=== PATIENT | male | born 1935 | race Caucasian/White ===

== ENCOUNTER 2018-06-12 06:26 | Inpatient (IN) | payer MEDICARE ==
[2018-06-12] MEDS: NS 500 ML IV (07:00)
[2018-06-12 07:03] LABS: BASO % 0.4 % (0.0-1.0); EOS # 0.1 10^3/uL (0.0-0.50); EOS % 1.8 % (0.0-3.0); HEMATOCRIT 38.3 % (42.0-52.0); HEMOGLOBIN 13.4 g/dl (13.5-17.5); IMMATURE GRANULOCYTE % 0.4 % (0-3.0); LYMPH # 0.4 10^3/uL (1.5-4.5); LYMPH % 9.3 % (24.0-44.0); MEAN CORPUSCULAR HEMOGLOBIN 32.8 pg (27.0-33.0); MEAN CORPUSCULAR VOLUME 93.9 fl (80.0-96.0); MONO # 0.5 10^3/uL (0.0-0.8); MONO % 10.9 % (0.0-5.0); NEUTROPHILS # 3.5 10^3/uL (1.8-7.7); NEUTROPHILS % 77.2 % (36.0-66.0); PLATELET COUNT, AUTOMATED 153 10^3/uL (150-450); RED BLOOD COUNT 4.08 10^6/uL (4.30-6.10); RED CELL DISTRIBUTION WIDTH 14.2 % (11.5-14.5); WHITE BLOOD COUNT 4.5 10^3/uL (4.0-10.0)
[2018-06-12] MEDS: MORPHINE 4 MG/ML 1ML VIAL/SYRINGE (J2270) IV ×4 (07:03→20:52)
[2018-06-12 07:14] LABS: INR 1.02; PROTHROMBIN TIME 13.5 SECONDS (12.1-14.4)
[2018-06-12 07:15] LABS: PARTIAL THROMBOPLASTIN TIME 25.8 SECONDS (25.4-37.6)
[2018-06-12 07:23] LABS: ANION GAP 12 MEQ/L (8-16); BLOOD UREA NITROGEN 40 MG/DL (7-18); CALCIUM LEVEL 8.9 MG/DL (8.8-10.2); CARBON DIOXIDE LEVEL 30 MEQ/L (21-32); CHLORIDE LEVEL 87 MEQ/L (98-107); GLOMERULAR FILTRATION RATE 38.7 (>35); GLUCOSE, FASTING 106 MG/DL (70-100); POTASSIUM SERUM 3.8 MEQ/L (3.5-5.1); SODIUM LEVEL 129 MEQ/L (136-145)
[2018-06-12] MEDS: NS 1,000 ML IV ×2 (07:35→20:52)
[2018-06-12 08:11] LABS: CPK CREATINE PHOSPHOKINASE 60 U/L (39-308); MB/CK RELATIVE INDEX 3.83 (< OR =4); TROPONIN I 0.21 NG/ML (< 0.10)
[2018-06-12] MEDS: ONDANSETRON 4MG/2ML VIAL (J2405) IV (08:32)
[2018-06-12] MEDS ORDERED: ONDANSETRON 4MG/2ML VIAL (J2405) IV (10:15)
[2018-06-12] MEDS: SENOKOT S TAB PO (20:52)
[2018-06-13] MEDS: MORPHINE 4 MG/ML 1ML VIAL/SYRINGE (J2270) IV ×2 (01:20→09:42)
[2018-06-13 07:10] LABS: ALBUMIN 2.2 GM/DL (3.2-5.2); ALBUMIN/GLOBULIN RATIO 0.45 (1.00-1.93); ALKALINE PHOSPHATASE 96 U/L (45-117); ALT/SGPT 19 U/L (12-78); ANION GAP 10 MEQ/L (8-16); AST/SGOT 32 U/L (7-37); BILIRUBIN,TOTAL 1.1 MG/DL (0.2-1.0); BLOOD UREA NITROGEN 37 MG/DL (7-18); CALCIUM LEVEL 8.7 MG/DL (8.8-10.2); CARBON DIOXIDE LEVEL 30 MEQ/L (21-32); CHLORIDE LEVEL 95 MEQ/L (98-107); CREATININE FOR GFR 1.62 MG/DL (0.70-1.30); GLOMERULAR FILTRATION RATE 43.8 (>35); GLUCOSE, FASTING 85 MG/DL (70-100); SODIUM LEVEL 135 MEQ/L (136-145); TOTAL PROTEIN 7.1 GM/DL (6.4-8.2)
[2018-06-13] MEDS: SENOKOT S TAB PO ×2 (08:06→21:22)
[2018-06-13] MEDS: NS 1,000 ML IV (09:42)
[2018-06-13] MEDS: FUROSEMIDE 80 MG TAB PO (12:44)
[2018-06-14] MEDS: NS 1,000 ML IV ×3 (01:33→17:43)
[2018-06-14] MEDS: MORPHINE 4 MG/ML 1ML VIAL/SYRINGE (J2270) IV ×2 (03:45→20:44)
[2018-06-14] MEDS: SENOKOT S TAB PO ×2 (09:00→20:44)
[2018-06-14] MEDS: FUROSEMIDE 80 MG TAB PO (09:10)
[2018-06-14] MEDS ORDERED: fentaNYL 100 MCG/2 ML INJECTION (J3010) As Ordered (10:49)
[2018-06-14] MEDS ORDERED: LIDOCAINE 2% INJ 100 MG/5 ML SDV (FOR ANES.) As Ordered (10:49)
[2018-06-14] MEDS ORDERED: PROPOFOL 200 MG/20 ML VIAL As Ordered (10:49)
[2018-06-14] MEDS ORDERED: KETAMINE HCL 200 MG/20 ML VIAL As Ordered (12:10)
[2018-06-14] MEDS ORDERED: ePHEDrine SULFATE 25 MG/5 ML(5MG/ML) SYRINGE As Ordered (12:20)
[2018-06-14] MEDS ORDERED: PHENYLephrine HCL 500 MCG/5 ML (100MCG/ML) SYRINGE (J2370) As Ordered ×2 (12:20→12:38)
[2018-06-14] MEDS: ceFAZolin 1GM INJ (J0690 PER 500MG) As Ordered (12:24)
[2018-06-14] MEDS ORDERED: MORPHINE 10 MG/ML 1ML VIAL (J2270) IV (14:00)
[2018-06-14] MEDS ORDERED: fentaNYL 100 MCG/2 ML INJECTION (J3010) IV (14:00)
[2018-06-14] MEDS ORDERED: LR 1,000 ML IV (14:00)
[2018-06-14] MEDS ORDERED: ONDANSETRON 4MG/2ML VIAL (J2405) IV (14:00)
[2018-06-15] MEDS: BISACODYL 5 MG TAB PO (01:19)
[2018-06-15 07:47] LABS: HEMATOCRIT 35.8 % (42.0-52.0); HEMOGLOBIN 11.9 g/dl (13.5-17.5); MEAN CORPUSCULAR HEMOGLOBIN 32.9 pg (27.0-33.0); MEAN CORPUSCULAR HGB CONC 33.2 g/dl (32.0-36.5); MEAN CORPUSCULAR VOLUME 98.9 fl (80.0-96.0); PLATELET COUNT, AUTOMATED 113 10^3/uL (150-450); RED BLOOD COUNT 3.62 10^6/uL (4.30-6.10); RED CELL DISTRIBUTION WIDTH 14.6 % (11.5-14.5); WHITE BLOOD COUNT 6.2 10^3/uL (4.0-10.0)
[2018-06-15 08:00] LABS: ANION GAP 10 MEQ/L (8-16); BLOOD UREA NITROGEN 34 MG/DL (7-18); CALCIUM LEVEL 8.1 MG/DL (8.8-10.2); CARBON DIOXIDE LEVEL 29 MEQ/L (21-32); CHLORIDE LEVEL 98 MEQ/L (98-107); CREATININE FOR GFR 1.49 MG/DL (0.70-1.30); GLOMERULAR FILTRATION RATE 48.2 (>35); GLUCOSE, FASTING 98 MG/DL (70-100); POTASSIUM SERUM 3.3 MEQ/L (3.5-5.1); SODIUM LEVEL 137 MEQ/L (136-145)
[2018-06-15] MEDS: RIVAROXABAN 10 MG TAB (XARELTO) PO (10:19)
[2018-06-15] MEDS: SENOKOT S TAB PO ×2 (10:19→20:25)
[2018-06-15] MEDS: FUROSEMIDE 80 MG TAB PO (10:19)
[2018-06-15] MEDS: POTASSIUM CHLORIDE 10 MEQ SR TABLET PO (12:43)
[2018-06-16] MEDS: ACETAMINOPHEN 500 MG TAB PO (02:58)
[2018-06-16] MEDS: BISACODYL 5 MG TAB PO (09:40)
[2018-06-16] MEDS: RIVAROXABAN 10 MG TAB (XARELTO) PO (09:40)
[2018-06-16] MEDS: FUROSEMIDE 80 MG TAB PO (09:40)
[2018-06-16] MEDS: SENOKOT S TAB PO ×2 (09:40→21:16)
[2018-06-16 13:29] LABS: ANION GAP 9 MEQ/L (8-16); BLOOD UREA NITROGEN 36 MG/DL (7-18); CALCIUM LEVEL 8.1 MG/DL (8.8-10.2); CARBON DIOXIDE LEVEL 29 MEQ/L (21-32); CHLORIDE LEVEL 97 MEQ/L (98-107); CREATININE FOR GFR 1.58 MG/DL (0.70-1.30); GLUCOSE, FASTING 155 MG/DL (70-100); POTASSIUM SERUM 3.7 MEQ/L (3.5-5.1); SODIUM LEVEL 135 MEQ/L (136-145)
[2018-06-17] MEDS: ACETAMINOPHEN 500 MG TAB PO ×3 (03:44→23:11)
[2018-06-17] MEDS: SENOKOT S TAB PO ×2 (10:11→20:13)
[2018-06-17] MEDS: RIVAROXABAN 10 MG TAB (XARELTO) PO (10:11)
[2018-06-17] MEDS: FUROSEMIDE 80 MG TAB PO (10:12)
[2018-06-17 10:40] LABS: HEMATOCRIT 34.8 % (42.0-52.0); HEMOGLOBIN 11.9 g/dl (13.5-17.5); MEAN CORPUSCULAR HEMOGLOBIN 33.2 pg (27.0-33.0); MEAN CORPUSCULAR HGB CONC 34.2 g/dl (32.0-36.5); MEAN CORPUSCULAR VOLUME 97.2 fl (80.0-96.0); PLATELET COUNT, AUTOMATED 121 10^3/uL (150-450); RED BLOOD COUNT 3.58 10^6/uL (4.30-6.10); RED CELL DISTRIBUTION WIDTH 14.6 % (11.5-14.5); WHITE BLOOD COUNT 8.5 10^3/uL (4.0-10.0)
[2018-06-17 10:55] LABS: ANION GAP 12 MEQ/L (8-16); BLOOD UREA NITROGEN 34 MG/DL (7-18); CALCIUM LEVEL 7.9 MG/DL (8.8-10.2); CARBON DIOXIDE LEVEL 27 MEQ/L (21-32); CHLORIDE LEVEL 97 MEQ/L (98-107); CREATININE FOR GFR 1.37 MG/DL (0.70-1.30); GLOMERULAR FILTRATION RATE 53.1 (>35); GLUCOSE, FASTING 131 MG/DL (70-100); POTASSIUM SERUM 3.6 MEQ/L (3.5-5.1); SODIUM LEVEL 136 MEQ/L (136-145)
[2018-06-18 08:12] LABS: HEMOGLOBIN 11.4 g/dl (13.5-17.5); MEAN CORPUSCULAR HGB CONC 34.5 g/dl (32.0-36.5); MEAN CORPUSCULAR VOLUME 95.7 fl (80.0-96.0); PLATELET COUNT, AUTOMATED 131 10^3/uL (150-450); RED BLOOD COUNT 3.45 10^6/uL (4.30-6.10); RED CELL DISTRIBUTION WIDTH 14.6 % (11.5-14.5); WHITE BLOOD COUNT 7.4 10^3/uL (4.0-10.0)
[2018-06-18 08:33] LABS: ANION GAP 9 MEQ/L (8-16); BLOOD UREA NITROGEN 31 MG/DL (7-18); CALCIUM LEVEL 7.8 MG/DL (8.8-10.2); CARBON DIOXIDE LEVEL 30 MEQ/L (21-32); CHLORIDE LEVEL 98 MEQ/L (98-107); CREATININE FOR GFR 1.21 MG/DL (0.70-1.30); GLOMERULAR FILTRATION RATE > 60.0 (>35); GLUCOSE, FASTING 110 MG/DL (70-100); POTASSIUM SERUM 3.7 MEQ/L (3.5-5.1); SODIUM LEVEL 137 MEQ/L (136-145)
[2018-06-18] MEDS: FUROSEMIDE 80 MG TAB PO (09:35)
[2018-06-18] MEDS: RIVAROXABAN 10 MG TAB (XARELTO) PO (09:35)
[2018-06-18] MEDS: SENOKOT S TAB PO ×2 (09:35→21:35)
[2018-06-18] MEDS: ACETAMINOPHEN 500 MG TAB PO (17:18)
[2018-06-19] MEDS: ACETAMINOPHEN 500 MG TAB PO ×2 (00:43→20:07)
[2018-06-19 07:38] LABS: HEMOGLOBIN 11.9 g/dl (13.5-17.5); MEAN CORPUSCULAR HEMOGLOBIN 33.1 pg (27.0-33.0); MEAN CORPUSCULAR VOLUME 97.2 fl (80.0-96.0); PLATELET COUNT, AUTOMATED 150 10^3/uL (150-450); RED CELL DISTRIBUTION WIDTH 14.7 % (11.5-14.5); WHITE BLOOD COUNT 6.4 10^3/uL (4.0-10.0)
[2018-06-19 08:01] LABS: ANION GAP 9 MEQ/L (8-16); BLOOD UREA NITROGEN 28 MG/DL (7-18); CALCIUM LEVEL 8.1 MG/DL (8.8-10.2); CARBON DIOXIDE LEVEL 29 MEQ/L (21-32); CHLORIDE LEVEL 97 MEQ/L (98-107); CREATININE FOR GFR 1.16 MG/DL (0.70-1.30); GLOMERULAR FILTRATION RATE > 60.0 (>35); GLUCOSE, FASTING 84 MG/DL (70-100); POTASSIUM SERUM 3.4 MEQ/L (3.5-5.1); SODIUM LEVEL 135 MEQ/L (136-145)
[2018-06-19] MEDS: FUROSEMIDE 80 MG TAB PO (09:57)
[2018-06-19] MEDS: SENOKOT S TAB PO ×2 (09:57→20:06)
[2018-06-19] MEDS: RIVAROXABAN 10 MG TAB (XARELTO) PO (09:57)
[2018-06-19] MEDS: traMADol 50 MG TAB PO ×2 (10:06→20:07)
[2018-06-20] MEDS: SENOKOT S TAB PO ×2 (07:33→21:37)
[2018-06-20] MEDS: RIVAROXABAN 10 MG TAB (XARELTO) PO (08:00)
[2018-06-20] MEDS: FUROSEMIDE 80 MG TAB PO (08:00)
[2018-06-20] MEDS ORDERED: FLEET ENEMA PR (10:15)
[2018-06-20] MEDS ORDERED: MOM 30ML SUSPENSION UDC PO (10:15)
[2018-06-20] MEDS: POTASSIUM CHLORIDE 10 MEQ SR TABLET PO (10:40)
[2018-06-20 10:43] LABS: HEMATOCRIT 36.4 % (42.0-52.0); HEMOGLOBIN 12.1 g/dl (13.5-17.5); MEAN CORPUSCULAR HEMOGLOBIN 32.9 pg (27.0-33.0); MEAN CORPUSCULAR HGB CONC 33.2 g/dl (32.0-36.5); MEAN CORPUSCULAR VOLUME 98.9 fl (80.0-96.0); PLATELET COUNT, AUTOMATED 188 10^3/uL (150-450); RED BLOOD COUNT 3.68 10^6/uL (4.30-6.10); RED CELL DISTRIBUTION WIDTH 14.9 % (11.5-14.5); WHITE BLOOD COUNT 7.3 10^3/uL (4.0-10.0)
[2018-06-20 11:01] LABS: ANION GAP 7 MEQ/L (8-16); BLOOD UREA NITROGEN 31 MG/DL (7-18); CALCIUM LEVEL 7.9 MG/DL (8.8-10.2); CARBON DIOXIDE LEVEL 29 MEQ/L (21-32); CHLORIDE LEVEL 97 MEQ/L (98-107); CREATININE FOR GFR 1.33 MG/DL (0.70-1.30); GLOMERULAR FILTRATION RATE 54.9 (>35); GLUCOSE, FASTING 126 MG/DL (70-100); SODIUM LEVEL 133 MEQ/L (136-145)
[2018-06-20] MEDS: TAMSULOSIN 0.4 MG CAP PO (12:35)
[2018-06-20] MEDS: traMADol 50 MG TAB PO (21:40)
[2018-06-20] MEDS: ACETAMINOPHEN 500 MG TAB PO (21:41)
[2018-06-21] MEDS: SENOKOT S TAB PO ×2 (09:00→20:01)
[2018-06-21] MEDS: TAMSULOSIN 0.4 MG CAP PO (09:24)
[2018-06-21] MEDS: POTASSIUM CHLORIDE 10 MEQ SR TABLET PO (09:24)
[2018-06-21] MEDS: RIVAROXABAN 10 MG TAB (XARELTO) PO (09:24)
[2018-06-21] MEDS: FUROSEMIDE 80 MG TAB PO (09:24)
[2018-06-21] MEDS: ACETAMINOPHEN 500 MG TAB PO (15:55)
[2018-06-21] MEDS: traMADol 50 MG TAB PO (20:03)
[2018-06-22] MEDS: SENOKOT S TAB PO (10:32)
[2018-06-22] MEDS: POTASSIUM CHLORIDE 10 MEQ SR TABLET PO (10:32)
[2018-06-22] MEDS: FUROSEMIDE 80 MG TAB PO (10:33)
[2018-06-22] MEDS: RIVAROXABAN 10 MG TAB (XARELTO) PO (10:33)
[2018-06-22] MEDS: TAMSULOSIN 0.4 MG CAP PO (10:33)
== END 2018-06-22 13:34 | disposition other institution (70) | DRG 481 ==
LOC: M ED 06:26 → M ED INP 11:58 → M MS5PR 13:57
PROC: 0QS604Z Reposition Right Upper Femur with Internal Fixation Device, Open Approach (ICD-10-PCS; principal; 2018-06-14 11:00)
DX: S72.144A Nondisplaced intertrochanteric fracture of right femur, initial encounter for closed fracture (principal); E87.1 Hypo-osmolality and hyponatremia; R79.89 Other specified abnormal findings of blood chemistry; I50.9 Heart failure, unspecified; I45.10 Unspecified right bundle-branch block; N18.3 Chronic kidney disease, stage 3 (moderate); D38.1 Neoplasm of uncertain behavior of trachea, bronchus and lung; R33.9 Retention of urine, unspecified; I48.91 Unspecified atrial fibrillation; W01.0XXA Fall on same level from slipping, tripping and stumbling without subsequent striking against object, initial encounter; Y92.003 Bedroom of unspecified non-institutional (private) residence as the place of occurrence of the external cause; Y93.01 Activity, walking, marching and hiking; Z86.73 Personal history of transient ischemic attack (TIA), and cerebral infarction without residual deficits; Z79.01 Long term (current) use of anticoagulants; Z79.899 Other long term (current) drug therapy; Z87.891 Personal history of nicotine dependence; Z88.5 Allergy status to narcotic agent; Z88.6 Allergy status to analgesic agent; Z96.0 Presence of urogenital implants

== ENCOUNTER → 2018-07-25 | Outpatient (REF) | payer MEDICARE ==
[2018-07-25 17:22] LABS: BASO % 0.2 % (0.0-1.0); EOS # 0.1 10^3/uL (0.0-0.50); EOS % 1.1 % (0.0-3.0); HEMATOCRIT 28.2 % (42.0-52.0); HEMOGLOBIN 9.2 g/dl (13.5-17.5); IMMATURE GRANULOCYTE % 0.4 % (0-3.0); LYMPH # 0.3 10^3/uL (1.5-4.5); LYMPH % 5.8 % (24.0-44.0); MEAN CORPUSCULAR HEMOGLOBIN 32.5 pg (27.0-33.0); MEAN CORPUSCULAR HGB CONC 32.6 g/dl (32.0-36.5); MEAN CORPUSCULAR VOLUME 99.6 fl (80.0-96.0); MONO # 0.3 10^3/uL (0.0-0.8); NEUTROPHILS # 4.6 10^3/uL (1.8-7.7); NEUTROPHILS % 86.5 % (36.0-66.0); PLATELET COUNT, AUTOMATED 212 10^3/uL (150-450); RED BLOOD COUNT 2.83 10^6/uL (4.30-6.10); RED CELL DISTRIBUTION WIDTH 15.4 % (11.5-14.5); WHITE BLOOD COUNT 5.3 10^3/uL (4.0-10.0)
[2018-07-25 17:44] LABS: INR 1.56; PROTHROMBIN TIME 18.9 SECONDS (12.1-14.4)
[2018-07-25 17:45] LABS: PARTIAL THROMBOPLASTIN TIME 33.3 SECONDS (25.4-37.6)
[2018-07-25 17:59] LABS: ALBUMIN 2.2 GM/DL (3.2-5.2); ALBUMIN/GLOBULIN RATIO 0.39 (1.00-1.93); ALKALINE PHOSPHATASE 230 U/L (45-117); ALT/SGPT 21 U/L (12-78); ANION GAP 10 MEQ/L (8-16); AST/SGOT 34 U/L (7-37); BILIRUBIN,TOTAL 0.6 MG/DL (0.2-1.0); BLOOD UREA NITROGEN 70 MG/DL (7-18); CALCIUM LEVEL 8.1 MG/DL (8.8-10.2); CARBON DIOXIDE LEVEL 29 MEQ/L (21-32); CHLORIDE LEVEL 97 MEQ/L (98-107); CREATININE FOR GFR 1.64 MG/DL (0.70-1.30); GLOMERULAR FILTRATION RATE 43.1 (>35); GLUCOSE, FASTING 85 MG/DL (70-100); MAGNESIUM LEVEL 2.6 MG/DL (1.8-2.4); PHOSPHORUS LEVEL 3.7 MG/DL (2.5-4.9); SODIUM LEVEL 136 MEQ/L (136-145); TOTAL PROTEIN 7.8 GM/DL (6.4-8.2)
== END ==
LOC: M LAB REF 16:55
DX: J44.9 Chronic obstructive pulmonary disease, unspecified (principal); Z79.01 Long term (current) use of anticoagulants
CPT/HCPCS: 83735

== ENCOUNTER 2018-07-29 14:04 | Inpatient (IN) | payer MEDICARE ==
[2018-07-29] MEDS: FUROSEMIDE 40 MG/4 ML VIAL (J1940) IV (15:45)
[2018-07-29 16:14] LABS: BASO % 0.2 % (0.0-1.0); EOS # 0.1 10^3/uL (0.0-0.50); EOS % 1.2 % (0.0-3.0); HEMATOCRIT 28.2 % (42.0-52.0); HEMOGLOBIN 8.9 g/dl (13.5-17.5); IMMATURE GRANULOCYTE % 0.4 % (0-3.0); LYMPH # 0.3 10^3/uL (1.5-4.5); LYMPH % 5.5 % (24.0-44.0); MEAN CORPUSCULAR HEMOGLOBIN 32.2 pg (27.0-33.0); MEAN CORPUSCULAR HGB CONC 31.6 g/dl (32.0-36.5); MEAN CORPUSCULAR VOLUME 102.2 fl (80.0-96.0); MONO # 0.5 10^3/uL (0.0-0.8); MONO % 9.3 % (0.0-5.0); NEUTROPHILS # 4.1 10^3/uL (1.8-7.7); NEUTROPHILS % 83.4 % (36.0-66.0); PLATELET COUNT, AUTOMATED 211 10^3/uL (150-450); RED BLOOD COUNT 2.76 10^6/uL (4.30-6.10)
[2018-07-29 16:23] LABS: INR 1.24; PROTHROMBIN TIME 15.8 SECONDS (12.1-14.4)
[2018-07-29 16:24] LABS: PARTIAL THROMBOPLASTIN TIME 29.4 SECONDS (25.4-37.6)
[2018-07-29 16:33] LABS: POSITIVE DIFF POS FLAG
[2018-07-29 16:41] LABS: ALBUMIN 2.1 GM/DL (3.2-5.2); ALBUMIN/GLOBULIN RATIO 0.39 (1.00-1.93); ALKALINE PHOSPHATASE 193 U/L (45-117); ALT/SGPT 15 U/L (12-78); ANION GAP 7 MEQ/L (8-16); AST/SGOT 24 U/L (7-37); BILIRUBIN,DIRECT 0.2 MG/DL (0.0-0.2); BILIRUBIN,TOTAL 0.5 MG/DL (0.2-1.0); BLOOD UREA NITROGEN 62 MG/DL (7-18); CALCIUM LEVEL 8.3 MG/DL (8.8-10.2); CARBON DIOXIDE LEVEL 30 MEQ/L (21-32); CHLORIDE LEVEL 100 MEQ/L (98-107); CPK CREATINE PHOSPHOKINASE 41 U/L (39-308); CREATININE FOR GFR 1.49 MG/DL (0.70-1.30); FREE T4 0.89 NG/DL (0.76-1.46); GLOMERULAR FILTRATION RATE 48.2 (>35); GLUCOSE, FASTING 105 MG/DL (70-100); MB/CK RELATIVE INDEX 7.32 (< OR =4); NT-PRO BNP 17624 PG/ML (<450); POTASSIUM SERUM 3.9 MEQ/L (3.5-5.1); SODIUM LEVEL 137 MEQ/L (136-145); TOTAL PROTEIN 7.5 GM/DL (6.4-8.2); TROPONIN I 0.23 NG/ML (< 0.10)
[2018-07-29] MEDS ORDERED: BISACODYL 10 MG SUPP PR (17:45)
[2018-07-29] MEDS: RIVAROXABAN 20 MG TAB (XARELTO) PO (18:08)
[2018-07-29] MEDS: FUROSEMIDE 100 MG/10 ML VIAL (J1940) IV (21:12)
[2018-07-29 21:57] LABS: TROPONIN I 0.22 NG/ML (< 0.10)
[2018-07-30] MEDS: LEVOTHYROXINE 12.5MCG PER 1/2 TAB (0.0125MG) PO (05:32)
[2018-07-30 06:28] LABS: ANION GAP 9 MEQ/L (8-16); BLOOD UREA NITROGEN 57 MG/DL (7-18); CALCIUM LEVEL 8.1 MG/DL (8.8-10.2); CARBON DIOXIDE LEVEL 29 MEQ/L (21-32); CHLORIDE LEVEL 100 MEQ/L (98-107); CREATININE FOR GFR 1.46 MG/DL (0.70-1.30); GLOMERULAR FILTRATION RATE 49.3 (>35); GLUCOSE, FASTING 90 MG/DL (70-100); POTASSIUM SERUM 3.3 MEQ/L (3.5-5.1); SODIUM LEVEL 138 MEQ/L (136-145)
[2018-07-30] MEDS: POTASSIUM CHLORIDE 10 MEQ SR TABLET PO (08:43)
[2018-07-30] MEDS: FUROSEMIDE 100 MG/10 ML VIAL (J1940) IV ×3 (08:43→20:21)
[2018-07-30] MEDS: TAMSULOSIN 0.4 MG CAP PO (08:43)
[2018-07-30 10:01] LABS: HEMOGLOBIN 8.4 g/dl (13.5-17.5); MEAN CORPUSCULAR HEMOGLOBIN 31.9 pg (27.0-33.0); MEAN CORPUSCULAR HGB CONC 32.3 g/dl (32.0-36.5); MEAN CORPUSCULAR VOLUME 98.9 fl (80.0-96.0); PLATELET COUNT, AUTOMATED 139 10^3/uL (150-450); RED BLOOD COUNT 2.63 10^6/uL (4.30-6.10); RED CELL DISTRIBUTION WIDTH 16.1 % (11.5-14.5); WHITE BLOOD COUNT 4.7 10^3/uL (4.0-10.0)
[2018-07-30 10:34] LABS: ANION GAP 9 MEQ/L (8-16); BLOOD UREA NITROGEN 57 MG/DL (7-18); CALCIUM LEVEL 8.2 MG/DL (8.8-10.2); CARBON DIOXIDE LEVEL 28 MEQ/L (21-32); CHLORIDE LEVEL 100 MEQ/L (98-107); CREATININE FOR GFR 1.48 MG/DL (0.70-1.30); GLOMERULAR FILTRATION RATE 48.6 (>35); GLUCOSE, FASTING 137 MG/DL (70-100); POTASSIUM SERUM 3.3 MEQ/L (3.5-5.1); SODIUM LEVEL 137 MEQ/L (136-145)
[2018-07-30 10:36] LABS: TROPONIN I 0.22 NG/ML (< 0.10)
[2018-07-30 13:55] LABS: HEMATOCRIT 26.7 % (42.0-52.0); HEMOGLOBIN 8.5 g/dl (13.5-17.5)
[2018-07-30] MEDS: RIVAROXABAN 20 MG TAB (XARELTO) PO (18:45)
[2018-07-30] MEDS: TOLNAFTATE 1% CREAM 15 GM TOP (20:22)
[2018-07-31] MEDS: LEVOTHYROXINE 12.5MCG PER 1/2 TAB (0.0125MG) PO (05:36)
[2018-07-31 06:23] LABS: HEMATOCRIT 25.9 % (42.0-52.0); HEMOGLOBIN 8.2 g/dl (13.5-17.5); MEAN CORPUSCULAR HEMOGLOBIN 32.3 pg (27.0-33.0); MEAN CORPUSCULAR HGB CONC 31.7 g/dl (32.0-36.5); PLATELET COUNT, AUTOMATED 194 10^3/uL (150-450); RED BLOOD COUNT 2.54 10^6/uL (4.30-6.10); RED CELL DISTRIBUTION WIDTH 15.5 % (11.5-14.5); WHITE BLOOD COUNT 5.2 10^3/uL (4.0-10.0)
[2018-07-31 06:50] LABS: ANION GAP 7 MEQ/L (8-16); BLOOD UREA NITROGEN 54 MG/DL (7-18); CALCIUM LEVEL 8.6 MG/DL (8.8-10.2); CARBON DIOXIDE LEVEL 29 MEQ/L (21-32); CHLORIDE LEVEL 99 MEQ/L (98-107); CREATININE FOR GFR 1.49 MG/DL (0.70-1.30); GLOMERULAR FILTRATION RATE 48.2 (>35); GLUCOSE, FASTING 99 MG/DL (70-100); SODIUM LEVEL 135 MEQ/L (136-145)
[2018-07-31] MEDS: FERROUS SULFATE 325MG TAB PO (09:00)
[2018-07-31] MEDS: FUROSEMIDE 100 MG/10 ML VIAL (J1940) IV ×2 (09:00→20:34)
[2018-07-31] MEDS: SENNA 8.6 MG TAB (SENOKOT) PO ×2 (09:03→20:33)
[2018-07-31] MEDS: TAMSULOSIN 0.4 MG CAP PO (09:03)
[2018-07-31] MEDS: TOLNAFTATE 1% CREAM 15 GM TOP ×2 (09:03→20:33)
[2018-07-31 10:27] LABS: FERRITIN 70 NG/ML (26-388); IRON (FE) 22 UG/DL (65-175); PERCENT SATURATION 7.5 % (19.7-50.0); TOTAL IRON BINDING CAPACITY 294 UG/DL (250-450)
[2018-07-31] MEDS: RIVAROXABAN 20 MG TAB (XARELTO) PO (17:06)
[2018-08-01] MEDS: SLF 3 ML SYR IV ×3 (05:58→21:10)
[2018-08-01 06:12] LABS: HEMATOCRIT 24.7 % (42.0-52.0); HEMOGLOBIN 7.7 g/dl (13.5-17.5); MEAN CORPUSCULAR HEMOGLOBIN 31.3 pg (27.0-33.0); MEAN CORPUSCULAR HGB CONC 31.2 g/dl (32.0-36.5); MEAN CORPUSCULAR VOLUME 100.4 fl (80.0-96.0); PLATELET COUNT, AUTOMATED 183 10^3/uL (150-450); RED BLOOD COUNT 2.46 10^6/uL (4.30-6.10); RED CELL DISTRIBUTION WIDTH 15.5 % (11.5-14.5); WHITE BLOOD COUNT 4.4 10^3/uL (4.0-10.0)
[2018-08-01 06:20] LABS: ANION GAP 6 MEQ/L (8-16); BLOOD UREA NITROGEN 51 MG/DL (7-18); CARBON DIOXIDE LEVEL 29 MEQ/L (21-32); CHLORIDE LEVEL 100 MEQ/L (98-107); CREATININE FOR GFR 1.43 MG/DL (0.70-1.30); GLOMERULAR FILTRATION RATE 50.5 (>35); GLUCOSE, FASTING 79 MG/DL (70-100); POTASSIUM SERUM 3.8 MEQ/L (3.5-5.1); SODIUM LEVEL 135 MEQ/L (136-145)
[2018-08-01 07:30] LABS: HEMATOCRIT 25.3 % (42.0-52.0)
[2018-08-01] MEDS: FERROUS SULFATE 325MG TAB PO (09:00)
[2018-08-01] MEDS: TAMSULOSIN 0.4 MG CAP PO (09:27)
[2018-08-01] MEDS: SENNA 8.6 MG TAB (SENOKOT) PO ×2 (09:28→21:10)
[2018-08-01] MEDS: FUROSEMIDE 100 MG/10 ML VIAL (J1940) IV ×2 (09:28→21:00)
[2018-08-01] MEDS: TOLNAFTATE 1% CREAM 15 GM TOP ×2 (09:28→21:09)
[2018-08-01 10:07] LABS: VITAMIN B12 LEVEL > 2000 PG/ML (247-911)
[2018-08-01 10:08] LABS: FOLATE 10.8 NG/ML (>5.4)
[2018-08-01] MEDS: RIVAROXABAN 20 MG TAB (XARELTO) PO (18:07)
[2018-08-02] MEDS: SLF 3 ML SYR IV ×3 (05:48→21:19)
[2018-08-02 05:58] LABS: HEMATOCRIT 23.4 % (42.0-52.0); HEMOGLOBIN 7.5 g/dl (13.5-17.5); MEAN CORPUSCULAR HEMOGLOBIN 31.6 pg (27.0-33.0); MEAN CORPUSCULAR HGB CONC 32.1 g/dl (32.0-36.5); MEAN CORPUSCULAR VOLUME 98.7 fl (80.0-96.0); PLATELET COUNT, AUTOMATED 177 10^3/uL (150-450); RED BLOOD COUNT 2.37 10^6/uL (4.30-6.10); RED CELL DISTRIBUTION WIDTH 15.4 % (11.5-14.5); WHITE BLOOD COUNT 4.5 10^3/uL (4.0-10.0)
[2018-08-02 06:25] LABS: ANION GAP 7 MEQ/L (8-16); BLOOD UREA NITROGEN 50 MG/DL (7-18); CALCIUM LEVEL 7.9 MG/DL (8.8-10.2); CARBON DIOXIDE LEVEL 28 MEQ/L (21-32); CHLORIDE LEVEL 100 MEQ/L (98-107); CREATININE FOR GFR 1.29 MG/DL (0.70-1.30); GLOMERULAR FILTRATION RATE 56.9 (>35); GLUCOSE, FASTING 83 MG/DL (70-100); POTASSIUM SERUM 3.6 MEQ/L (3.5-5.1); SODIUM LEVEL 135 MEQ/L (136-145)
[2018-08-02] MEDS: TAMSULOSIN 0.4 MG CAP PO (09:11)
[2018-08-02] MEDS: TOLNAFTATE 1% CREAM 15 GM TOP ×2 (09:11→21:19)
[2018-08-02] MEDS: SENNA 8.6 MG TAB (SENOKOT) PO ×2 (09:11→21:18)
[2018-08-02] MEDS: DOCUSATE SODIUM 100 MG CAP PO ×2 (09:11→21:18)
[2018-08-02] MEDS: FERROUS SULFATE 325MG TAB PO ×2 (09:12→21:18)
[2018-08-02] MEDS: ASCORBIC ACID 500 MG TAB PO ×2 (09:12→21:19)
[2018-08-02] MEDS: FUROSEMIDE 100 MG/10 ML VIAL (J1940) IV ×2 (09:12→21:18)
[2018-08-02 13:53] LABS: IMMEDIATE SPIN CROSSMATCH 1 1
[2018-08-02] MEDS: MIRALAX POWDER 255 GM BTL (POLYETHYLENE GLYCOL) PO (17:01)
[2018-08-02] MEDS: RIVAROXABAN 20 MG TAB (XARELTO) PO (17:02)
[2018-08-02] MEDS: FUROSEMIDE 40 MG/4 ML VIAL (J1940) IV (17:02)
[2018-08-02 18:07] LABS: HEMATOCRIT 28.9 % (42.0-52.0); HEMOGLOBIN 9.3 g/dl (13.5-17.5)
[2018-08-02 18:31] LABS: ANION GAP 10 MEQ/L (8-16); BLOOD UREA NITROGEN 52 MG/DL (7-18); CALCIUM LEVEL 8.2 MG/DL (8.8-10.2); CARBON DIOXIDE LEVEL 27 MEQ/L (21-32); CHLORIDE LEVEL 99 MEQ/L (98-107); CREATININE FOR GFR 1.45 MG/DL (0.70-1.30); GLOMERULAR FILTRATION RATE 49.7 (>35); GLUCOSE, FASTING 102 MG/DL (70-100); MAGNESIUM LEVEL 2.6 MG/DL (1.8-2.4); POTASSIUM SERUM 3.8 MEQ/L (3.5-5.1); SODIUM LEVEL 136 MEQ/L (136-145)
[2018-08-03] MEDS: SLF 3 ML SYR IV ×3 (05:44→20:35)
[2018-08-03 06:00] LABS: HEMATOCRIT 25.8 % (42.0-52.0); HEMOGLOBIN 8.5 g/dl (13.5-17.5); MEAN CORPUSCULAR HEMOGLOBIN 30.7 pg (27.0-33.0); MEAN CORPUSCULAR HGB CONC 32.9 g/dl (32.0-36.5); MEAN CORPUSCULAR VOLUME 93.1 fl (80.0-96.0); PLATELET COUNT, AUTOMATED 175 10^3/uL (150-450); RED BLOOD COUNT 2.77 10^6/uL (4.30-6.10); RED CELL DISTRIBUTION WIDTH 17.2 % (11.5-14.5); WHITE BLOOD COUNT 4.3 10^3/uL (4.0-10.0)
[2018-08-03 06:18] LABS: ANION GAP 10 MEQ/L (8-16); BLOOD UREA NITROGEN 50 MG/DL (7-18); CALCIUM LEVEL 7.9 MG/DL (8.8-10.2); CARBON DIOXIDE LEVEL 26 MEQ/L (21-32); CHLORIDE LEVEL 100 MEQ/L (98-107); GLOMERULAR FILTRATION RATE 51.8 (>35); GLUCOSE, FASTING 83 MG/DL (70-100); POTASSIUM SERUM 3.5 MEQ/L (3.5-5.1); SODIUM LEVEL 136 MEQ/L (136-145)
[2018-08-03] MEDS: POTASSIUM CHLORIDE 10 MEQ SR TABLET PO (08:21)
[2018-08-03] MEDS: SENNA 8.6 MG TAB (SENOKOT) PO ×2 (08:21→20:34)
[2018-08-03] MEDS: DOCUSATE SODIUM 100 MG CAP PO ×2 (08:21→20:34)
[2018-08-03] MEDS: ASCORBIC ACID 500 MG TAB PO ×2 (08:22→20:36)
[2018-08-03] MEDS: FERROUS SULFATE 325MG TAB PO ×2 (08:22→20:34)
[2018-08-03] MEDS: TAMSULOSIN 0.4 MG CAP PO (08:22)
[2018-08-03] MEDS: FUROSEMIDE 100 MG/10 ML VIAL (J1940) IV ×2 (08:23→20:34)
[2018-08-03] MEDS: TOLNAFTATE 1% CREAM 15 GM TOP ×2 (08:26→20:34)
[2018-08-03] MEDS: RIVAROXABAN 15 MG TAB (XARELTO) PO (18:20)
[2018-08-04] MEDS: SLF 3 ML SYR IV ×3 (05:34→21:23)
[2018-08-04 05:58] LABS: HEMOGLOBIN 8.4 g/dl (13.5-17.5); MEAN CORPUSCULAR HEMOGLOBIN 30.3 pg (27.0-33.0); MEAN CORPUSCULAR HGB CONC 32.3 g/dl (32.0-36.5); MEAN CORPUSCULAR VOLUME 93.9 fl (80.0-96.0); PLATELET COUNT, AUTOMATED 181 10^3/uL (150-450); RED BLOOD COUNT 2.77 10^6/uL (4.30-6.10); RED CELL DISTRIBUTION WIDTH 16.8 % (11.5-14.5); WHITE BLOOD COUNT 4.4 10^3/uL (4.0-10.0)
[2018-08-04 06:15] LABS: ANION GAP 8 MEQ/L (8-16); BLOOD UREA NITROGEN 47 MG/DL (7-18); CALCIUM LEVEL 8.3 MG/DL (8.8-10.2); CARBON DIOXIDE LEVEL 27 MEQ/L (21-32); CHLORIDE LEVEL 100 MEQ/L (98-107); CREATININE FOR GFR 1.66 MG/DL (0.70-1.30); GLOMERULAR FILTRATION RATE 42.5 (>35); GLUCOSE, FASTING 85 MG/DL (70-100); MAGNESIUM LEVEL 2.3 MG/DL (1.8-2.4); POTASSIUM SERUM 3.9 MEQ/L (3.5-5.1); SODIUM LEVEL 135 MEQ/L (136-145)
[2018-08-04] MEDS: FERROUS SULFATE 325MG TAB PO ×2 (09:35→21:22)
[2018-08-04] MEDS: DOCUSATE SODIUM 100 MG CAP PO (09:36)
[2018-08-04] MEDS: SENNA 8.6 MG TAB (SENOKOT) PO (09:36)
[2018-08-04] MEDS: ASCORBIC ACID 500 MG TAB PO ×2 (09:36→21:22)
[2018-08-04] MEDS: TAMSULOSIN 0.4 MG CAP PO (09:36)
[2018-08-04] MEDS: FUROSEMIDE 100 MG/10 ML VIAL (J1940) IV (09:39)
[2018-08-04] MEDS: TOLNAFTATE 1% CREAM 15 GM TOP ×2 (09:39→21:22)
[2018-08-04] MEDS: ENTRESTO 24-26MG TABLET (SACUBITRIL/VALSARTAN) PO ×2 (10:29→11:39)
[2018-08-04 15:29] LABS: BEDSIDE GLUCOSE 103 MG/DL (83-110)
[2018-08-04 15:51] LABS: HEMATOCRIT 28.4 % (42.0-52.0); HEMOGLOBIN 9.2 g/dl (13.5-17.5)
[2018-08-04 16:16] LABS: SODIUM LEVEL 132 MEQ/L (136-145)
[2018-08-04 16:16] LABS: POTASSIUM SERUM 3.7 MEQ/L (3.5-5.1)
[2018-08-04] MEDS: MIRALAX *UNIT DOSE* 17GM PACKET PO (17:43)
[2018-08-04] MEDS: RIVAROXABAN 15 MG TAB (XARELTO) PO (17:58)
[2018-08-04] MEDS: SENOKOT S TAB PO (21:22)
[2018-08-05] MEDS: SLF 3 ML SYR IV ×3 (05:09→20:59)
[2018-08-05 05:41] LABS: HEMATOCRIT 26.4 % (42.0-52.0); HEMOGLOBIN 8.6 g/dl (13.5-17.5); MEAN CORPUSCULAR HEMOGLOBIN 30.6 pg (27.0-33.0); MEAN CORPUSCULAR HGB CONC 32.6 g/dl (32.0-36.5); PLATELET COUNT, AUTOMATED 184 10^3/uL (150-450); RED BLOOD COUNT 2.81 10^6/uL (4.30-6.10); RED CELL DISTRIBUTION WIDTH 16.6 % (11.5-14.5); WHITE BLOOD COUNT 5.6 10^3/uL (4.0-10.0)
[2018-08-05 06:01] LABS: ANION GAP 6 MEQ/L (8-16); BLOOD UREA NITROGEN 46 MG/DL (7-18); CALCIUM LEVEL 8.2 MG/DL (8.8-10.2); CARBON DIOXIDE LEVEL 28 MEQ/L (21-32); CHLORIDE LEVEL 97 MEQ/L (98-107); CREATININE FOR GFR 1.66 MG/DL (0.70-1.30); GLOMERULAR FILTRATION RATE 42.5 (>35); GLUCOSE, FASTING 91 MG/DL (70-100); MAGNESIUM LEVEL 2.4 MG/DL (1.8-2.4); POTASSIUM SERUM 3.7 MEQ/L (3.5-5.1); SODIUM LEVEL 131 MEQ/L (136-145)
[2018-08-05] MEDS: FUROSEMIDE 100 MG/10 ML VIAL (J1940) IV ×2 (08:46→20:59)
[2018-08-05] MEDS: ENTRESTO 24-26MG TABLET (SACUBITRIL/VALSARTAN) PO (08:58)
[2018-08-05] MEDS: FERROUS SULFATE 325MG TAB PO ×2 (08:58→20:37)
[2018-08-05] MEDS: MIRALAX *UNIT DOSE* 17GM PACKET PO (08:58)
[2018-08-05] MEDS: SENOKOT S TAB PO ×2 (08:58→20:38)
[2018-08-05] MEDS: TOLNAFTATE 1% CREAM 15 GM TOP ×2 (08:59→20:43)
[2018-08-05] MEDS: TAMSULOSIN 0.4 MG CAP PO (08:59)
[2018-08-05] MEDS: ASCORBIC ACID 500 MG TAB PO ×2 (08:59→20:38)
[2018-08-05] MEDS: RIVAROXABAN 15 MG TAB (XARELTO) PO (17:42)
[2018-08-05] MEDS: [UNRECOGNIZED DRUG - OTHER] PO (20:41)
[2018-08-05] MEDS: COENZYME Q10 PO (20:41)
[2018-08-06 05:21] LABS: HEMATOCRIT 26.6 % (42.0-52.0); HEMOGLOBIN 8.7 g/dl (13.5-17.5); MEAN CORPUSCULAR HEMOGLOBIN 30.6 pg (27.0-33.0); MEAN CORPUSCULAR HGB CONC 32.7 g/dl (32.0-36.5); MEAN CORPUSCULAR VOLUME 93.7 fl (80.0-96.0); PLATELET COUNT, AUTOMATED 185 10^3/uL (150-450); RED BLOOD COUNT 2.84 10^6/uL (4.30-6.10); RED CELL DISTRIBUTION WIDTH 16.2 % (11.5-14.5); WHITE BLOOD COUNT 5.7 10^3/uL (4.0-10.0)
[2018-08-06 05:25] LABS: ANION GAP 8 MEQ/L (8-16); BLOOD UREA NITROGEN 45 MG/DL (7-18); CALCIUM LEVEL 7.9 MG/DL (8.8-10.2); CARBON DIOXIDE LEVEL 25 MEQ/L (21-32); CHLORIDE LEVEL 97 MEQ/L (98-107); CREATININE FOR GFR 1.72 MG/DL (0.70-1.30); GLOMERULAR FILTRATION RATE 40.8 (>35); GLUCOSE, FASTING 95 MG/DL (70-100); MAGNESIUM LEVEL 2.4 MG/DL (1.8-2.4); SODIUM LEVEL 130 MEQ/L (136-145)
[2018-08-06] MEDS: SLF 3 ML SYR IV ×3 (06:00→21:34)
[2018-08-06] MEDS: TAMSULOSIN 0.4 MG CAP PO (09:00)
[2018-08-06] MEDS: INTESTINAL FORMULA PO (09:00)
[2018-08-06] MEDS: FERROUS SULFATE 325MG TAB PO ×2 (09:00→21:23)
[2018-08-06] MEDS: SENOKOT S TAB PO ×2 (09:00→21:00)
[2018-08-06] MEDS: FUROSEMIDE 100 MG/10 ML VIAL (J1940) IV ×2 (09:00→21:00)
[2018-08-06] MEDS: [UNRECOGNIZED DRUG - OTHER] PO (09:00)
[2018-08-06] MEDS: COENZYME Q10 PO ×3 (09:00→21:23)
[2018-08-06] MEDS: TOLNAFTATE 1% CREAM 15 GM TOP ×2 (09:00→21:32)
[2018-08-06] MEDS: [UNRECOGNIZED DRUG - OTHER] PO (09:00)
[2018-08-06] MEDS: CYANOCOBALAMIN PO (09:00)
[2018-08-06] MEDS: MIRALAX *UNIT DOSE* 17GM PACKET PO (09:00)
[2018-08-06] MEDS: ASCORBIC ACID 500 MG TAB PO ×2 (09:00→21:23)
[2018-08-06 11:15] LABS: CPK CREATINE PHOSPHOKINASE 37 U/L (39-308); MB/CK RELATIVE INDEX 8.38 (< OR =4); TROPONIN I 0.18 NG/ML (< 0.10)
[2018-08-06 11:23] LABS: LACTIC ACID SEPSIS PROTOCOL 2.4 MMOL/L (0.4-2.0)
[2018-08-06 12:03] LABS: TYPE AND SCREEN 1
[2018-08-06 16:21] LABS: CPK CREATINE PHOSPHOKINASE 39 U/L (39-308); MB/CK RELATIVE INDEX 8.97 (< OR =4); TROPONIN I 0.17 NG/ML (< 0.10)
[2018-08-06] MEDS: RIVAROXABAN 15 MG TAB (XARELTO) PO (18:39)
[2018-08-06] MEDS: ACETAMINOPHEN 500 MG TAB PO (18:41)
[2018-08-06] MEDS: [UNRECOGNIZED DRUG - OTHER] PO (21:23)
[2018-08-07 05:15] LABS: HEMATOCRIT 25.8 % (42.0-52.0); HEMOGLOBIN 8.3 g/dl (13.5-17.5); MEAN CORPUSCULAR HGB CONC 32.2 g/dl (32.0-36.5); MEAN CORPUSCULAR VOLUME 93.1 fl (80.0-96.0); PLATELET COUNT, AUTOMATED 186 10^3/uL (150-450); RED BLOOD COUNT 2.77 10^6/uL (4.30-6.10); RED CELL DISTRIBUTION WIDTH 16.3 % (11.5-14.5); WHITE BLOOD COUNT 5.1 10^3/uL (4.0-10.0)
[2018-08-07 05:42] LABS: ALBUMIN 1.7 GM/DL (3.2-5.2); ALBUMIN/GLOBULIN RATIO 0.38 (1.00-1.93); ALKALINE PHOSPHATASE 141 U/L (45-117); ALT/SGPT 14 U/L (12-78); ANION GAP 8 MEQ/L (8-16); AST/SGOT 25 U/L (7-37); BILIRUBIN,DIRECT 0.2 MG/DL (0.0-0.2); BILIRUBIN,TOTAL 0.4 MG/DL (0.2-1.0); BLOOD UREA NITROGEN 51 MG/DL (7-18); CALCIUM LEVEL 7.8 MG/DL (8.8-10.2); CARBON DIOXIDE LEVEL 25 MEQ/L (21-32); CHLORIDE LEVEL 97 MEQ/L (98-107); CREATININE FOR GFR 1.89 MG/DL (0.70-1.30); GLOMERULAR FILTRATION RATE 36.6 (>35); GLUCOSE, FASTING 99 MG/DL (70-100); MAGNESIUM LEVEL 2.3 MG/DL (1.8-2.4); POTASSIUM SERUM 4.3 MEQ/L (3.5-5.1); PREALBUMIN 7.8 MG/DL (20.0-40.0); SODIUM LEVEL 130 MEQ/L (136-145); TOTAL PROTEIN 6.2 GM/DL (6.4-8.2)
[2018-08-07] MEDS: SLF 3 ML SYR IV ×3 (05:48→21:43)
[2018-08-07] MEDS: ASCORBIC ACID 500 MG TAB PO ×2 (09:32→21:41)
[2018-08-07] MEDS: SENOKOT S TAB PO ×2 (09:32→21:41)
[2018-08-07] MEDS: FUROSEMIDE 100 MG/10 ML VIAL (J1940) IV ×2 (09:32→21:43)
[2018-08-07] MEDS: TAMSULOSIN 0.4 MG CAP PO (09:32)
[2018-08-07] MEDS: FERROUS SULFATE 325MG TAB PO ×2 (09:32→21:41)
[2018-08-07] MEDS: MIRALAX *UNIT DOSE* 17GM PACKET PO (09:32)
[2018-08-07] MEDS: INTESTINAL FORMULA PO (09:33)
[2018-08-07] MEDS: COENZYME Q10 PO ×3 (09:33→21:42)
[2018-08-07] MEDS: TOLNAFTATE 1% CREAM 15 GM TOP ×2 (09:34→21:43)
[2018-08-07] MEDS: [UNRECOGNIZED DRUG - OTHER] PO (09:34)
[2018-08-07] MEDS: CYANOCOBALAMIN PO (09:34)
[2018-08-07] MEDS: [UNRECOGNIZED DRUG - OTHER] PO (09:34)
[2018-08-07] MEDS ORDERED: ONDANSETRON 4MG/2ML VIAL (J2405) IV (10:30)
[2018-08-07] MEDS: ACETAMINOPHEN 500 MG TAB PO ×2 (10:35→16:14)
[2018-08-07 13:34] LABS: TYPE AND SCREEN 1
[2018-08-07] MEDS: RIVAROXABAN 15 MG TAB (XARELTO) PO (18:37)
[2018-08-07] MEDS: [UNRECOGNIZED DRUG - OTHER] PO (21:41)
[2018-08-08 04:52] LABS: HEMATOCRIT 27.5 % (42.0-52.0); HEMOGLOBIN 8.9 g/dl (13.5-17.5); MEAN CORPUSCULAR HEMOGLOBIN 30.5 pg (27.0-33.0); MEAN CORPUSCULAR HGB CONC 32.4 g/dl (32.0-36.5); MEAN CORPUSCULAR VOLUME 94.2 fl (80.0-96.0); PLATELET COUNT, AUTOMATED 180 10^3/uL (150-450); RED BLOOD COUNT 2.92 10^6/uL (4.30-6.10); RED CELL DISTRIBUTION WIDTH 16.6 % (11.5-14.5); WHITE BLOOD COUNT 5.6 10^3/uL (4.0-10.0)
[2018-08-08 05:25] LABS: ANION GAP 7 MEQ/L (8-16); BLOOD UREA NITROGEN 51 MG/DL (7-18); CALCIUM LEVEL 7.8 MG/DL (8.8-10.2); CARBON DIOXIDE LEVEL 27 MEQ/L (21-32); CHLORIDE LEVEL 95 MEQ/L (98-107); CREATININE FOR GFR 1.85 MG/DL (0.70-1.30); FREE THYROXINE INDEX 1.9 % (1.4-3.8); GLOMERULAR FILTRATION RATE 37.5 (>35); GLUCOSE, FASTING 92 MG/DL (70-100); MAGNESIUM LEVEL 2.3 MG/DL (1.8-2.4); POTASSIUM SERUM 4.3 MEQ/L (3.5-5.1); SODIUM LEVEL 129 MEQ/L (136-145); T UPTAKE 39 % (33-40); THYROXINE (T4) 4.8 UG/DL (4.5-12.0)
[2018-08-08] MEDS: SLF 3 ML SYR IV ×3 (05:49→21:28)
[2018-08-08] MEDS: SENOKOT S TAB PO ×2 (08:41→21:00)
[2018-08-08] MEDS: INTESTINAL FORMULA PO (08:41)
[2018-08-08] MEDS: LEVOTHYROXINE 25MCG TABLET (0.025MG) PO (08:41)
[2018-08-08] MEDS: ASCORBIC ACID 500 MG TAB PO (08:41)
[2018-08-08] MEDS: FERROUS SULFATE 325MG TAB PO (08:41)
[2018-08-08] MEDS: TAMSULOSIN 0.4 MG CAP PO (08:41)
[2018-08-08] MEDS: COENZYME Q10 PO (08:42)
[2018-08-08] MEDS: TOLNAFTATE 1% CREAM 15 GM TOP ×2 (08:43→21:23)
[2018-08-08] MEDS: MIRALAX *UNIT DOSE* 17GM PACKET PO (08:43)
[2018-08-08] MEDS: [UNRECOGNIZED DRUG - OTHER] PO (09:00)
[2018-08-08] MEDS: CYANOCOBALAMIN PO (09:00)
[2018-08-08] MEDS: FUROSEMIDE 100 MG/10 ML VIAL (J1940) IV ×2 (09:00→21:23)
[2018-08-08] MEDS: [UNRECOGNIZED DRUG - OTHER] PO (09:00)
[2018-08-08] MEDS: MIDODRINE 5 MG TAB PO ×2 (12:00→15:29)
[2018-08-08] MEDS: FUROSEMIDE 40 MG/4 ML VIAL (J1940) IV ×2 (12:00→18:08)
[2018-08-08] MEDS ORDERED: IRON SUCROSE 100MG 5ML VIAL (J1756 PER 1MG) IV (12:45)
[2018-08-08] MEDS: IRON SUCROSE 100 MG in NS 100 ML OVER 1 HR IV (15:28)
[2018-08-08] MEDS: RIVAROXABAN 15 MG TAB (XARELTO) PO (17:57)
[2018-08-08] MEDS: FUROSEMIDE injection 250 MG in D5W 225 ML IV (22:41)
[2018-08-09 05:06] LABS: OSMOLALITY URINE 303 MOSM/KG (500-800)
[2018-08-09 05:29] LABS: CHLORIDE,RANDOM URINE 36 MEQ/L; CREATININE,RANDOM URINE 34.4 MG/DL; POTASSIUM RANDOM URINE 46.6 MEQ/L; SODIUM,RANDOM URINE 16 MEQ/L; TOTAL PROTEIN,RANDOM URINE 36.4 MG/DL (0.0-12.0); URIC ACID,RANDOM URINE 17.1 MG/DL
[2018-08-09] MEDS: SLF 3 ML SYR IV ×3 (05:51→22:00)
[2018-08-09] MEDS: LEVOTHYROXINE 25MCG TABLET (0.025MG) PO (05:51)
[2018-08-09 06:22] LABS: HEMATOCRIT 27.2 % (42.0-52.0); HEMOGLOBIN 8.8 g/dl (13.5-17.5); MEAN CORPUSCULAR HEMOGLOBIN 30.9 pg (27.0-33.0); MEAN CORPUSCULAR HGB CONC 32.4 g/dl (32.0-36.5); MEAN CORPUSCULAR VOLUME 95.4 fl (80.0-96.0); PLATELET COUNT, AUTOMATED 166 10^3/uL (150-450); RED BLOOD COUNT 2.85 10^6/uL (4.30-6.10); RED CELL DISTRIBUTION WIDTH 16.7 % (11.5-14.5); WHITE BLOOD COUNT 5.1 10^3/uL (4.0-10.0)
[2018-08-09 06:43] LABS: ANION GAP 8 MEQ/L (8-16); BLOOD UREA NITROGEN 47 MG/DL (7-18); CALCIUM LEVEL 7.9 MG/DL (8.8-10.2); CARBON DIOXIDE LEVEL 27 MEQ/L (21-32); CHLORIDE LEVEL 96 MEQ/L (98-107); CREATININE FOR GFR 1.67 MG/DL (0.70-1.30); GLOMERULAR FILTRATION RATE 42.2 (>35); GLUCOSE, FASTING 83 MG/DL (70-100); MAGNESIUM LEVEL 2.4 MG/DL (1.8-2.4); POTASSIUM SERUM 3.9 MEQ/L (3.5-5.1); SODIUM LEVEL 131 MEQ/L (136-145)
[2018-08-09] MEDS: TAMSULOSIN 0.4 MG CAP PO (08:37)
[2018-08-09] MEDS: MIDODRINE 5 MG TAB PO ×3 (08:37→15:26)
[2018-08-09] MEDS: SENOKOT S TAB PO ×2 (08:38→21:00)
[2018-08-09] MEDS: MIRALAX *UNIT DOSE* 17GM PACKET PO (08:38)
[2018-08-09] MEDS: TOLNAFTATE 1% CREAM 15 GM TOP ×2 (08:38→21:16)
[2018-08-09] MEDS: POTASSIUM CHLORIDE 10% LIQ 20 MEQ/15 ML UDC PO (12:37)
[2018-08-09] MEDS: IRON SUCROSE 100 MG in NS 100 ML OVER 1 HR IV (15:26)
[2018-08-09] MEDS: RIVAROXABAN 15 MG TAB (XARELTO) PO (17:09)
[2018-08-10 05:43] LABS: HEMATOCRIT 26.5 % (42.0-52.0); HEMOGLOBIN 8.6 g/dl (13.5-17.5); MEAN CORPUSCULAR HEMOGLOBIN 30.7 pg (27.0-33.0); MEAN CORPUSCULAR HGB CONC 32.5 g/dl (32.0-36.5); MEAN CORPUSCULAR VOLUME 94.6 fl (80.0-96.0); PLATELET COUNT, AUTOMATED 155 10^3/uL (150-450); RED CELL DISTRIBUTION WIDTH 16.9 % (11.5-14.5); WHITE BLOOD COUNT 4.4 10^3/uL (4.0-10.0)
[2018-08-10 06:11] LABS: ANION GAP 6 MEQ/L (8-16); BLOOD UREA NITROGEN 51 MG/DL (7-18); CARBON DIOXIDE LEVEL 29 MEQ/L (21-32); CHLORIDE LEVEL 95 MEQ/L (98-107); CREATININE FOR GFR 1.65 MG/DL (0.70-1.30); GLOMERULAR FILTRATION RATE 42.8 (>35); GLUCOSE, FASTING 78 MG/DL (70-100); MAGNESIUM LEVEL 2.3 MG/DL (1.8-2.4); POTASSIUM SERUM 4.3 MEQ/L (3.5-5.1); SODIUM LEVEL 130 MEQ/L (136-145)
[2018-08-10] MEDS: FUROSEMIDE injection 250 MG in D5W 225 ML IV ×2 (06:11→20:00)
[2018-08-10] MEDS: LEVOTHYROXINE 25MCG TABLET (0.025MG) PO (06:11)
[2018-08-10] MEDS: SLF 3 ML SYR IV ×3 (06:15→22:00)
[2018-08-10] MEDS: MIDODRINE 5 MG TAB PO (08:25)
[2018-08-10] MEDS: SENOKOT S TAB PO ×2 (08:25→21:07)
[2018-08-10] MEDS: MIRALAX *UNIT DOSE* 17GM PACKET PO (08:25)
[2018-08-10] MEDS: TAMSULOSIN 0.4 MG CAP PO (08:25)
[2018-08-10] MEDS: TOLNAFTATE 1% CREAM 15 GM TOP ×2 (08:26→21:07)
[2018-08-10] MEDS: DOBUTamine HCL 500,000 MCG in APPROPRIATE DILUENT 1 EA IV (11:30)
[2018-08-10] MEDS: CHLOROTHIAZIDE 500 MG VIAL (J1205) IV (12:13)
[2018-08-10] MEDS: IRON SUCROSE 100 MG in NS 100 ML OVER 1 HR IV (14:21)
[2018-08-10] MEDS: RIVAROXABAN 15 MG TAB (XARELTO) PO (17:29)
[2018-08-10] MEDS: ACETAMINOPHEN 500 MG TAB PO (22:51)
[2018-08-11 06:02] LABS: HEMATOCRIT 26.6 % (42.0-52.0); HEMOGLOBIN 8.5 g/dl (13.5-17.5); MEAN CORPUSCULAR HEMOGLOBIN 30.5 pg (27.0-33.0); MEAN CORPUSCULAR VOLUME 95.3 fl (80.0-96.0); PLATELET COUNT, AUTOMATED 153 10^3/uL (150-450); RED BLOOD COUNT 2.79 10^6/uL (4.30-6.10); WHITE BLOOD COUNT 5.7 10^3/uL (4.0-10.0)
[2018-08-11] MEDS: LEVOTHYROXINE 25MCG TABLET (0.025MG) PO (06:11)
[2018-08-11] MEDS: SLF 3 ML SYR IV ×4 (06:11→21:02)
[2018-08-11 06:32] LABS: ANION GAP 9 MEQ/L (8-16); BLOOD UREA NITROGEN 50 MG/DL (7-18); CALCIUM LEVEL 7.8 MG/DL (8.8-10.2); CARBON DIOXIDE LEVEL 27 MEQ/L (21-32); CHLORIDE LEVEL 95 MEQ/L (98-107); CREATININE FOR GFR 1.57 MG/DL (0.70-1.30); GLOMERULAR FILTRATION RATE 45.4 (>35); GLUCOSE, FASTING 86 MG/DL (70-100); POTASSIUM SERUM 3.3 MEQ/L (3.5-5.1); SODIUM LEVEL 131 MEQ/L (136-145)
[2018-08-11] MEDS: POTASSIUM CHLORIDE 10 MEQ SR TABLET PO (07:53)
[2018-08-11] MEDS: MIRALAX *UNIT DOSE* 17GM PACKET PO (09:00)
[2018-08-11] MEDS: TAMSULOSIN 0.4 MG CAP PO (09:00)
[2018-08-11] MEDS: SENOKOT S TAB PO ×2 (09:00→21:00)
[2018-08-11] MEDS: aMILoride 5 MG TAB PO (11:24)
[2018-08-11] MEDS: TOLNAFTATE 1% CREAM 15 GM TOP ×2 (11:25→21:01)
[2018-08-11] MEDS: CHLOROTHIAZIDE 500 MG VIAL (J1205) IV (11:25)
[2018-08-11] MEDS: POTASSIUM CHLORIDE 10% LIQ 20 MEQ/15 ML UDC PO (13:48)
[2018-08-11] MEDS: IRON SUCROSE 100 MG in NS 100 ML OVER 1 HR IV (15:31)
[2018-08-11] MEDS: RIVAROXABAN 15 MG TAB (XARELTO) PO (18:07)
[2018-08-11] MEDS: FUROSEMIDE injection 250 MG in D5W 225 ML IV (21:23)
[2018-08-12] MEDS: SLF 3 ML SYR IV (06:00)
[2018-08-12 06:06] LABS: HEMATOCRIT 25.1 % (42.0-52.0); HEMOGLOBIN 8.3 g/dl (13.5-17.5); MEAN CORPUSCULAR HEMOGLOBIN 31.2 pg (27.0-33.0); MEAN CORPUSCULAR HGB CONC 33.1 g/dl (32.0-36.5); MEAN CORPUSCULAR VOLUME 94.4 fl (80.0-96.0); PLATELET COUNT, AUTOMATED 149 10^3/uL (150-450); RED BLOOD COUNT 2.66 10^6/uL (4.30-6.10); RED CELL DISTRIBUTION WIDTH 17.2 % (11.5-14.5); WHITE BLOOD COUNT 6.8 10^3/uL (4.0-10.0)
[2018-08-12] MEDS: LEVOTHYROXINE 25MCG TABLET (0.025MG) PO (06:14)
[2018-08-12 06:26] LABS: ANION GAP 8 MEQ/L (8-16); BLOOD UREA NITROGEN 48 MG/DL (7-18); CALCIUM LEVEL 8.2 MG/DL (8.8-10.2); CARBON DIOXIDE LEVEL 29 MEQ/L (21-32); CHLORIDE LEVEL 94 MEQ/L (98-107); CREATININE FOR GFR 1.51 MG/DL (0.70-1.30); GLOMERULAR FILTRATION RATE 47.5 (>35); GLUCOSE, FASTING 93 MG/DL (70-100); POTASSIUM SERUM 3.4 MEQ/L (3.5-5.1); SODIUM LEVEL 131 MEQ/L (136-145)
[2018-08-12] MEDS: MIRALAX *UNIT DOSE* 17GM PACKET PO (09:00)
[2018-08-12] MEDS: aMILoride 5 MG TAB PO (09:52)
[2018-08-12] MEDS: TAMSULOSIN 0.4 MG CAP PO (09:52)
[2018-08-12] MEDS: POTASSIUM CHLORIDE 10 MEQ SR TABLET PO (09:52)
[2018-08-12] MEDS: SENOKOT S TAB PO (09:52)
[2018-08-12] MEDS: TOLNAFTATE 1% CREAM 15 GM TOP (09:53)
[2018-08-12] MEDS ORDERED: POTASSIUM CHLORIDE 10% LIQ 20 MEQ/15 ML UDC PO (21:00)
== END 2018-08-12 11:15 | disposition hospice, inpatient (51) | DRG 291 ==
LOC: M ED 14:04 → M ED INP 17:41 → M PCU 21:51
PROC: 30233N1 Transfusion of Nonautologous Red Blood Cells into Peripheral Vein, Percutaneous Approach (ICD-10-PCS; principal; 2018-08-02)
PROC: 30233J1 Transfusion of Nonautologous Serum Albumin into Peripheral Vein, Percutaneous Approach (ICD-10-PCS; 2018-08-06)
DX: I13.0 Hypertensive heart and chronic kidney disease with heart failure and stage 1 through stage 4 chronic kidney disease, or unspecified chronic kidney disease (principal); I50.23 Acute on chronic systolic (congestive) heart failure; N17.9 Acute kidney failure, unspecified; E87.1 Hypo-osmolality and hyponatremia; Z51.5 Encounter for palliative care; Z66 Do not resuscitate; N18.3 Chronic kidney disease, stage 3 (moderate); I48.2 Chronic atrial fibrillation; B35.3 Tinea pedis; E02 Subclinical iodine-deficiency hypothyroidism; D63.1 Anemia in chronic kidney disease; D50.9 Iron deficiency anemia, unspecified; I95.9 Hypotension, unspecified; E87.6 Hypokalemia; K59.00 Constipation, unspecified; N40.0 Benign prostatic hyperplasia without lower urinary tract symptoms; Z88.6 Allergy status to analgesic agent; Z88.8 Allergy status to other drugs, medicaments and biological substances; Z79.01 Long term (current) use of anticoagulants; Z79.899 Other long term (current) drug therapy